=== PATIENT | male | born 1955 | race Caucasian/White ===

== ENCOUNTER → 2019-07-08 06:54 | Outpatient (CLI) | payer MEDICARE, SELFPAY ==
[2019-06-20 11:28] VITALS: BMI 35.6
--- NOTE | 2019-07-08 06:57 | ECHOCS_ITS ---
Reason For Study: LIGHTHEADEDNESS, CAD Procedure This was a 2D Doppler, Color Flow transthoracic echocardiogram. The study was technically difficult. Due to body habitus. Contrast injection was performed. Exam performed in department. Left Ventricle Normal LV size. Concentric left ventricular hypertrophy. The estimated ejection fraction is 60 %. There is evidence of diastolic dysfunction. No regional wall motion abnormalities noted. Right Ventricle Normal RV size. Normal systolic function. Atria The left atrium is mildly enlarged. Normal right atrium. No doppler evidence for ASD. Mitral Valve There is no mitral valve stenosis. No mitral valve insufficiency. Tricuspid Valve There is no tricuspid stenosis. Unable to estimate RV systolic pressure due to insufficient tricuspid regurgitant envelope. No tricuspid valve insufficiency. Aortic Valve Trisinus/trileaflet aortic valve. aortic sclerosis. Mild aortic stenosis. No aortic valve insufficiency. Pulmonic Valve There is no pulmonic valvular stenosis. No pulmonic valve insufficiency. Great Vessels Normal aortic root. Pericardium/Pleural No pericardial effusion. Medication Diluted definity 4.0ml given slow IV push to enhance endocardial definition. MMode/2D Measurements & Calculations LVIDd: 5.9 cm IVSd: 1.2 cm LVOT diam: 2.2 cm LVIDs: 3.9 cm LVPWd: 1.1 cm RVDd: 3.3 cm FS: 33.3 % LVOT area: 3.6 cm2 Ao root diam: 3.0 cm LAV(MOD-bp): 47.3 ml LA A4 area: 17.8 cm2 LAV(MOD-bp) Indexed: 22.7 ml/m2 LAV(MOD-sp2): 47.4 ml LAV(MOD-sp4): 47.4 ml LA dimension(2D): 4.3 cm RA A4 area: 14.1 cm2 Time Measurements MV dec time: 0.21 sec Doppler Measurements & Calculations MV E max russell: 102.2 cm/sec Lat Peak E' Russell: 7.6 cm/sec Med Peak E' Russell: 6.3 cm/sec MV A max russell: 87.8 cm/sec E/E' lat: 13.5 E/E' med: 16.2 MV E/A: 1.2 Ao V2 max: 201.8 cm/sec LV V1 max: 114.1 cm/sec SV(LVOT): 92.8 ml Ao max P.3 mmHg LV V1 max P.2 mmHg Ao V2 mean: 146.6 cm/sec LV V1 mean P.8 mmHg Ao mean P.2 mmHg LV V1 mean: 81.1 cm/sec Ao V2 VTI: 44.3 cm LV V1 VTI: 25.5 cm CHANNING(I,D): 2.1 cm2 CHANNING(V,D): 2.1 cm2 PA V2 max: 90.2 cm/sec TR max russell: 201.3 cm/sec TR max P.2 mmHg Interpretation Summary The study was technically difficult. Diluted definity 4.0ml given slow IV push to enhance endocardial definition. The estimated ejection fraction is 60 %. There is evidence of diastolic dysfunction. aortic sclerosis The study was technically difficult. Ordering Physician: Stacy Shirley Referring Physician: Michelet Alcala Performed By: Anastacia Mendoza RDCS, RVT
== END ==
PROVIDERS: Family Provider Internal Medicine; PCP Internal Medicine; Referring Provider Specialist; Visit Provider Specialist
DX: I25.10 Atherosclerotic heart disease of native coronary artery without angina pectoris (principal); R42 Dizziness and giddiness; G47.33 Obstructive sleep apnea (adult) (pediatric); Z99.89 Dependence on other enabling machines and devices
CPT/HCPCS: 78452; 93017; 93306; A9500; Q9957; A4216; C8929; J2785

== ENCOUNTER 2025-10-05 09:13 | Inpatient (IN) | payer MEDICARE, SELFPAY ==
[2025-10-05] VITALS (32 sets, daily range): BP systolic 126–186; BP diastolic 56–107; PULSE 59–139; RESP 18–39; TEMP 36.7–37.3; O2SAT 88–96; BMI 30.2
--- NOTE | 2025-10-05 09:34 | EKG12_ITS ---
Test Reason : SOB Blood Pressure : */* mmHG Vent. Rate : 136 BPM Atrial Rate : * BPM P-R Int : * ms QRS Dur : 96 ms QT Int : 296 ms P-R-T Axes : * 59 252 degrees QTcB Int : 445 ms Atrial fibrillation with rapid ventricular response Septal infarct , age undetermined Marked ST abnormality, possible inferolateral subendocardial injury Abnormal ECG Confirmed by KOKO MARTINEZ, MILAN ([id number]), story editor TROY CALLE ([id number]) on 10/09/2025 8:28:42 AM Referred By: Confirmed By: MILAN SUTHERLAND MD
--- NOTE | 2025-10-05 09:50 | ED.VIS.DYS ---
HPI History of Present Illness Chief Complaint: Shortness of Breath Narrative Narrative: Chief complaint and HPI: 69-year-old male with past medical history of COPD, QUYEN on CPAP and oxygen at night, HTN, HLD, CAD with history of PCI presents for evaluation of shortness of breath and right-sided chest pain. Patient states he has had chronic shortness of breath for years. States is progressively worsened over the past week. Has been using home aerosols. Patient states he developed redness sided chest pain. States that he has noticed his oxygen has been periodically dropping specifically with ambulation. He does not wear oxygen during the day. He denies any fever, chills, abdominal pain, nausea, vomiting, URI symptoms. Review of systems: See HPI Medications: As listed on the chart Allergies: As listed on the chart PFSH: Per chart Vital signs: As listed on the chart. Reviewed. Physical exam: Gen: A&O x3, NAD Head: Normocephalic, atraumatic Eyes: No sclera icterus, conjunctiva clear ENT: Moist mucous membranes Neck: Trachea midline CV: RRR, no murmurs, +1 pitting bilateral peripheral edema Resp: Lungs diminished in the bilateral bases, tight, expiratory wheezing, dyspneic with speaking, tachypnea GI: Abd soft, non-distended, non-tender, no r/r/g Musc: Full ROM, no deformity Skin: Warm, dry Neuro: Alert, oriented, grossly intact, sensation intact Psych: Cooperative, appropriate mood and affect [facility] Medical History (Updated 08/27/22 @ 09:27 by Gelacio Pereyra [employer]ANT SUPERVISOR, PLANT SUPERVISOR-C) QUYEN on CPAP Edema Migraine Morbid obesity Hypertensive retinopathy of both eyes Glaucoma Type 2 diabetes mellitus without complication Atherosclerosis of coronary artery of [place] heart without angina pectoris RLS (restless legs syndrome) COPD (chronic obstructive pulmonary disease) Essential hypertension Hyperlipidemia Open wound of right thigh Non-healing open wound of right groin Former smoker Hidradenitis Home Medications Medication Instructions Recorded Last Taken Type aspirin 81 mg chewable tablet 81 mg PO QHS 12/29/13 10/04/25 History budesonide-formoterol HFA 160 1 puff inhalation BID 12/29/13 06/17/16 07:45 History mcg-4.5 mcg/actuation aerosol inhaler metoprolol tartrate 25 mg tablet 25 mg PO BID 12/29/13 06/17/16 07:45 History atorvastatin 40 mg tablet 40 mg PO QHS 06/10/16 10/04/25 History bupropion HCl 150 mg tablet,12 hr 150 mg PO BID 06/10/16 10/04/25 History sustained-release lisinopril 40 mg tablet 40 mg PO DAILY 05/30/19 Unknown History tiotropium bromide 18 mcg capsule 1 cap inhalation DAILY 05/30/19 Unknown History with inhalation device amlodipine 5 mg tablet (Norvasc) 5 mg PO DAILY 10/05/25 10/04/25 History dulaglutide 4.5 mg/0.5 mL 4.5 mg subcut ARAUZ 10/05/25 10/01/25 History subcutaneous pen injector (Trulicity) furosemide 20 mg tablet 20 mg PO DAILY swelling 10/05/25 Unknown History insulin glargine 100 unit/mL (3 40 unit subcut DAILY 10/05/25 10/04/25 History mL) subcutaneous pen (Basaglar KwikPen U-100 Insulin) ipratropium 0.5 mg-albuterol 3 mg 3 ml inhalation BID sob 10/05/25 10/04/25 History (2.5 mg base)/3 mL nebulization soln metformin 500 mg tablet,extended 1,000 mg PO BID 10/05/25 Unknown History release 24 hr pregabalin 100 mg capsule (Lyrica) 100 mg PO TID 10/05/25 Unknown History Allergy/AdvReac Type Severity Reaction Status Date / Time No Known Allergies Allergy Verified 10/05/25 09:17 Family History Mother Heart disease Cancer Father Heart disease Grandfather Heart disease Surgical History History of removal of cyst Presence of stent in coronary artery Social History (Updated 09/14/19 @ 11:[address] Stacy Shirley MD) how long ago did patient quit smokin years ago alcohol intake: current alcohol intake frequency: a few times a month substance use type: does not use caffeine: Yes Type: coffee Number of servings: 3 and tea EXAM Physical Exam Const Vital Signs: 10/05/25 09:14 10/05/25 09:17 10/05/25 09:17 Temperature 98.1 F 99.1 F Temperature Source Oral Oral Pulse Rate 83 79 Respiratory Rate 20 H 36 H Respiratory Effort Respiratory Depth Respiratory Pattern Blood Pressure 185/80 H 186/80 H Blood Pressure Mean 115 115 Pulse Ox 88 96 91 Oxygen Delivery Method Room Air Room Air Room Air Oxygen Flow Rate (L/min) 10/05/25 09:29 10/05/25 09:34 10/05/25 09:45 Temperature Temperature Source Pulse Rate Respiratory Rate Respiratory Effort Short of Breath Respiratory Depth Deep Respiratory Pattern Tachypnea Blood Pressure Blood Pressure Mean Pulse Ox 96 Oxygen Delivery Method Nasal Cannula Nasal Cannula Nasal Cannula Oxygen Flow Rate (L/min) 2 2 2 10/05/25 09:45 10/05/25 10:14 10/05/25 10:17 Temperature 98.2 F Temperature Source Oral Pulse Rate 139 H 91 94 Respiratory Rate 30 H 32 H 28 H Respiratory Effort Respiratory Depth Respiratory Pattern Blood Pressure 163/90 H 163/90 H Blood Pressure Mean 114 114 Pulse Ox 92 91 Oxygen Delivery Method Nasal Cannula Nasal Cannula Oxygen Flow Rate (L/min) 1 1 10/05/25 10:32 10/05/25 10:42 10/05/25 10:42 Temperature Temperature Source Pulse Rate 90 126 H Respiratory Rate 34 H 36 H Respiratory Effort Respiratory Depth Respiratory Pattern Blood Pressure 163/90 H Blood Pressure Mean 112 Pulse Ox 89 91 Oxygen Delivery Method Nasal Cannula Oxygen Flow Rate (L/min) 1 10/05/25 11:00 10/05/25 11:04 10/05/25 11:15 Temperature 98.2 F Temperature Source Oral Pulse Rate 130 H 88 126 H Respiratory Rate 24 H 33 H 29 H Respiratory Effort Respiratory Depth Respiratory Pattern Blood Pressure 143/76 H 143/76 H Blood Pressure Mean 98 95 Pulse Ox 91 94 Oxygen Delivery Method Nasal Cannula Oxygen Flow Rate (L/min) 1 MDM MDM MDM Narrative Medical decision making narrative: 69-year-old male with past medical history of COPD, QUYEN on CPAP and oxygen at night, HTN, HLD, CAD with history of PCI presents for evaluation of shortness of breath and right-sided chest pain. Patient states he has had chronic shortness of breath for years. States is progressively worsened over the past week. Has been using home aerosols. Patient states he developed redness sided chest pain. States that he has noticed his oxygen has been periodically dropping specifically with ambulation. On presentation, patient is tachypneic and hypoxic on room air. Placed on 2 L nasal cannula. Differential diagnosis includes but is not limited to COPD exacerbation, pneumonia, CHF, PE, ACS. Solu-Medrol and DuoNebs ordered. Cardiac/respiratory workup ordered. Patient is intermittently in atrial fibrillation with RVR. He converts to a normal rate without intervention. However during breathing treatment patient remained in atrial fibrillation with RVR very therefore diltiazem ordered. On chart review, patient has no history of atrial fibrillation. I reviewed the cardiology note from 2021. Patient's last echocardiogram is from 2018 in which she had an EF of 60%. His last stress test was 2018 in which it was negative for ischemic changes. Prior to diltiazem and patient's heart rate now in the mid 90s. Will give 10 mg of 20mg. VBG with mild hypercapnia with normal pH. CBC without leukocytosis or anemia. Platelets unremarkable. Coagulation panel unremarkable. BMP unremarkable except for hyperglycemia. BNP unremarkable. Troponin unremarkable. On reevaluation, patient's heart rate in the 140s. 20 mg IV diltiazem ordered. Right before this was given patient's heart rate now in the 90s and appears normal sinus rhythm on the monitor therefore we will hold off on diltiazem and instead repeat EKG. Before EKG was being obtained, patient with back into A-fib with RVR. 20 mg of diltiazem ordered. CTA of the chest shows right hilar lymph node enlargement with postobstructive pneumonitis in the right upper lobe. A neoplastic process should be ruled out. Small right pleural effusion with atelectasis and infiltrate at the right lung base. No evidence of PE. Rocephin and azithromycin ordered for possible pneumonia. Patient will warrant admission for further workup and treatment. Patient was updated of all results and the plan. He confirmed understanding. Patient has an elevated [id number] score of 4. This places him at risk for stroke. Heparin versus Eliquis was discussed with the admitting team, Dr. Mccall. He would like Eliquis. This was ordered. Patient admitted. EKG: Interpreted by me/EM physician: EKG shows atrial fibrillation with RVR. Nonspecific ST changes. Heart rate 136. Impression: 1. New onset atrial fibrillation with RVR 2. Acute hypoxia requiring oxygen via nasal cannula 3. Possible pneumonia 4. Right hilar lymph node enlargement with postobstructive pneumonitis, possible neoplastic process 5. COPD exacerbation Lab Data Labs: Laboratory Results - last 24 hr 10/05/25 10/05/25 09:45 10:10 WBC 10.5 RBC 5.93 Hgb 16.3 Hct 50.2 MCV 84.7 MCH 27.5 MCHC 32.5 RDW Std Deviation 45.5 H RDW Coeff of David 15.0 H Plt Count 220 MPV 10.2 Immature Gran % (Auto) 0.500 Neut % (Auto) 78.7 H Lymph % (Auto) 11.3 L [place] % (Auto) 7.3 Eos % (Auto) 1.8 Baso % (Auto) 0.4 Absolute Neuts (auto) 8.2 H Absolute Lymphs (auto) 1.18 Nucleated RBC % 0 PT 14.0 INR 1.1 APTT 28.4 Sodium 139 Potassium 4.0 Chloride 103 Carbon Dioxide 26.8 Anion Gap 9 BUN 9 Creatinine 0.62 L Estim Creat Clear Calc 87.81 Est GFR (MDRD) Non-Af 103 BUN/Creatinine Ratio 14.3 Glucose 221 H Calcium 9.7 Troponin T High Sens 20 NT pro BNP II 59 ABG Data ABG results: ABG 10/05/25 10:19 Specimen Type MADDY Sample Site Not entered VBG pH 7.38 VBG pO2 28 VBG HCO3 31 H VBG Total CO2 33 VBG O2 Sat (Calc) 49 L VBG Base Excess 6 H POC Mix VBG pCO2 Pt Tmp 53.2 H O2 Delivery Device Not entered Radiography Diagnostic Testing: Clinical Impression(s) from Imaging Studies Chest CTA 10/05/25 10:45 IMPRESSION: Right hilar lymph node enlargement with postobstructive pneumonitis in the right upper lobe. A neoplastic process should be ruled out. Small right pleural effusion with atelectasis and infiltrate at the right lung base. No evidence of pulmonary embolism. Reading Location: [facility] Discharge Plan Triage Chief Complaint: Shortness of Breath ED Provider: Germán Paredes Dx/Rx/DC Orders Prescriptions: No Action lisinopril 40 mg tablet 40 mg PO DAILY tiotropium bromide 18 mcg capsule, w/inhalation device 1 cap INHALATION DAILY aspirin 81 MG tablet,chewable 81 mg PO QHS Patient Comments: heart health metoprolol tartrate 25 MG tablet 25 mg PO BID Patient Comments: heartrate budesonide-formoterol 1 INHALER inhaler 1 puff inhalation BID Patient Comments: breathing atorvastatin 40 MG tablet 40 mg PO QHS Patient Comments: cholesterol bupropion HCl 150 MG tablet sustained-release 12 hr 150 mg PO BID Patient Comments: depression furosemide 20 mg tablet 20 mg PO DAILY metformin 500 mg tablet extended release 24 hr 1,000 mg PO BID amlodipine [Norvasc] 5 mg tablet 5 mg PO DAILY pregabalin [Lyrica] 100 mg capsule 100 mg PO TID Trulicity 4.5 mg/0.5 mL pen injector 4.5 mg subcut ARAUZ insulin glargine [Basaglar KwikPen U-100 Insulin] 100 unit/mL (3 mL) insulin pen 40 unit subcut DAILY ipratropium-albuterol 0.5 mg-3 mg(2.5 mg base)/3 mL solution for nebulization 3 ml inhalation BID Primary Care Provider: Michelet Alcala Referrals: Michelet Alcala MD [Primary Care Provider, Internal Medicine] Print Language: Swiss
[2025-10-05] MEDS: 0.9% Normal Saline (500mL Bag) 500 ML 1000 ML IV (09:51)
[2025-10-05 09:52] LABS: Hematocrit 50.2 % (40-54); Hemoglobin 16.3 g/dL (13.0-16.5); Immature Granulocytes Count 0.050 X10^3/uL (0.0-0.0); Mean Corp Hgb Conc 32.5 g/dL (32-36); Mean Corpuscular Volume 84.7 fL (80-94); Mean Platelet Vol. 10.2 fl (6.2-12.0); NRBC Flagged by Analyzer 0 % (0-5); Platelet Count 220 K/mm3 (150-450); RBC Distribution Width CV 15.0 % (11.6-14.6); RBC Distribution Width SD 45.5 fl (35.1-43.9); Red Blood Count 5.93 M/mm3 (4.6-6.2); White Blood Count 10.5 K/mm3 (4.4-11.0)
[2025-10-05 10:15] LABS: Anion Gap 9 (5-15); BUN 9 mg/dL (4-19); BUN/Creat Ratio 14.3 RATIO (10-20); Calcium,Total 9.7 mg/dL (7.6-11.0); Carbon Dioxide 26.8 mmol/L (21.0-32.0); Chloride 103 mmol/L (98-108); Estimated Creatinine Clearance 87.81 ml/min (50-250); Glucose 221 mg/dL (70-99); Potassium 4.0 mmol/L (3.3-5.1); Pro- Brain NATRIURETIC PEPTIDE 59 pg/mL (<=900); Troponin T High Sensitivity 20 ng/L (<=22)
[2025-10-05 10:22] LABS: SITE Not entered; VBG BASE EXCESS 6 mmol/L (-1.0-3.5); VBG PO2 28 mmHg (25-40); VBG SO2 49 % (50-70); VBG TCO2 33 mmol/L (23-33)
[2025-10-05 10:36] LABS: Prothrombin Time (Protime)PT. 14.0 SECONDS (11.7-14.9)
[2025-10-05 10:37] LABS: Partial Thromboplast Time 28.4 Seconds (24.1-36.2)
--- NOTE | 2025-10-05 10:45 | CT_ITS ---
PROCEDURE: CTA CHEST W/WO CONTRAST 10/05/2025 REASON FOR EXAM: PE Right-sided chest pain. Dyspnea. COPD. TECHNIQUE: Procedure Code: [id number] Modality: CT Procedure: CTA CHEST W/WO CONTRAST Multiplanar Sagittal and Coronal images were obtained. 3D post processing was performed CONTRAST: Isovue 370 VOLUME: 100 mL One or more dose reduction techniques were used (e.g., Automated exposure control, adjustment of the mA and/or kV according to patient size, use of iterative reconstruction technique). RADIATION DOSE SUMMARY: CTDlvol: 11.1 mGy DLP: 532.66 mGycm COMPARISON: None FINDINGS: Hardware: None Mild heterogeneous appearance of the right lobe of the thyroid. Elevation of the right hemidiaphragm. Lymph nodes: Small lymph nodes are seen in the mediastinum. Right hilar lymph node enlargement with evidence of narrowing of the right intermediate stem bronchus with postobstructive pneumonitis and/or atelectasis in the right upper lobe. Small right pleural effusion with the right basilar infiltrate. The left lung is clear. Heart: The heart is nonenlarged. Coronary artery calcification. Thoracic Aorta: No thoracic aortic aneurysm or dissection. Pulmonary Vessels: No evidence of pulmonary embolism. Pleura: Small left pleural effusion. Upper Abdomen: Findings suggestive of a 1.4 cm cyst in the mid lateral aspect of the left kidney. Bones: Degenerative changes of the thoracic spine. Increased kyphosis. CT/CTA Chest W/WO Contrast IMPRESSION: Right hilar lymph node enlargement with postobstructive pneumonitis in the righ t upper lobe. A neoplastic process should be ruled out. Small right pleural effusion with atelectasis and infiltrate at the right lung base. No evidence of pulmonary embolism. Reading Location: [place] [id number]
--- NOTE | 2025-10-05 11:15 | EKG12_ITS ---
Test Reason : REPEAT Blood Pressure : */* mmHG Vent. Rate : 88 BPM Atrial Rate : 88 BPM P-R Int : 178 ms QRS Dur : 112 ms QT Int : 376 ms P-R-T Axes : 58 44 -15 degrees QTcB Int : 454 ms Normal sinus rhythm T wave abnormality, consider inferior ischemia Abnormal ECG Confirmed by KOKO MARTINEZ, MILAN ([id number]), medical transcription editor TROY CALLE ([id number]) on 10/09/2025 8:28:49 AM Referred By: Confirmed By: MILAN SUTHERLAND MD
[2025-10-05] MEDS: APIXABAN 5 MG TABLET PO ×2 (12:01→21:13)
[2025-10-05] MEDS: Azithromycin 500 MG in 0.9% Normal Saline (250mL Bag) 250 ML 250 MG IV (12:25)
--- NOTE | 2025-10-05 12:27 | HP.PCM.HOS_ITS ---
[facility] - [facility] General Date of Service: 10/05/25 Chief Complaint: Increased shortness of breath for 1 week, right-sided chest pain yesterday HPI Narrative INDY SHANKS, is a 69 M who presents with history of COPD and smoking came to ED with right-sided chest pain that started yesterday night. Chest pain is constant 6-7/10 intensity exacerbated with cough. He has been using nebulizer twice daily for 1 month but is still shortness of breath got worse for last 1 week. He has mild baseline cough but no exacerbation or sputum production. Denies fever. He smokes a pack per day. In ED, he was found afebrile RVR and was given a total of 30 mL of IV Cardizem bolus and 1 time converted to sinus rhythm but back again A-fib RVR. He is started on Cardizem drip. He follows Dr. Shirley and Gelacio grover, last seen August 2022 for history of CAD with stent, hypertension and dyslipidemia. In ED patient is still tachycardic A-fib RVR. He does CPAP at night. Follows Dr. Tiffanie Clements, restaurant service manager [facility] but last seen about a year ago. [facility] Medical History (Updated 10/05/25 @ 12:[address] Manas Mccall MD) QUYEN on CPAP Edema Migraine Morbid obesity Hypertensive retinopathy of both eyes Glaucoma Type 2 diabetes mellitus without complication Atherosclerosis of coronary artery of [place] heart without angina pectoris RLS (restless legs syndrome) COPD (chronic obstructive pulmonary disease) Essential hypertension Hyperlipidemia Open wound of right thigh Non-healing open wound of right groin Former smoker Hidradenitis Home Medications Medication Instructions Recorded Last Taken Type aspirin 81 mg chewable tablet 81 mg PO QHS 12/29/13 History budesonide-formoterol HFA 160 1 puff inhalation BID 06/17/16 07:45 History mcg-4.5 mcg/actuation aerosol inhaler metoprolol tartrate 25 mg tablet 25 mg PO BID 12/29/13 06/17/16 07:45 History atorvastatin 40 mg tablet 40 mg PO QHS 06/10/16 History bupropion HCl 150 mg tablet,12 hr 150 mg PO BID 10/04/25 History sustained-release lisinopril 40 mg tablet 40 mg PO DAILY 05/30/19 Unkn own History tiotropium bromide 18 mcg capsule 1 cap inhalation LICHA LY 05/30/19 Unknown History with inhalation device amlodipine 5 mg tablet (Norvasc) 5 mg PO DAILY 5 10/04/25 History dulaglutide 4.5 mg/0.5 mL 4.5 mg subcut ARAUZ 10/05/25 History subcutaneous pen injector (Trulicity) furosemide 20 mg tablet 20 mg PO DAILY swelling 09/23 02/14 Unknown History insulin glargine 100 unit/mL (3 40 unit subcut DAILY 1 12/05/24 10/04/25 History mL) subcutaneous pen (Basaglar KwikPen U-100 Insulin) ipratropium 0.5 mg-albuterol 3 mg 3 ml inhalation BID sob 10/05/25 10/04/25 History (2.5 mg base)/3 mL nebulization soln metformin 500 mg tablet,extended 1,000 mg PO BID 10/05 Unknown History release 24 hr pregabalin 100 mg capsule (Lyrica) 100 mg PO TID 10/05 Unknown History Allergy/AdvReac Type Severity Reaction Status Date / Time No Known Allergies Allergy Verified 10/05/25 09:17 Family History Mother Heart disease Cancer Father Heart disease Grandfather Heart disease Surgical History History of removal of cyst Presence of stent in coronary artery Social History how long ago did patient quit smokin years ago alcohol intake: current alcohol intake frequency: a few times a month substance use type: does not use caffeine: Yes Type: coffee Number of servings: 3 and tea ROS ROS Narrative Constitutional: Reports chronic fatigue and weakness. No fever. Loss of weight from 255 pound to 187 pound in 1 year, loss appetite but also on Trulicity HEENT: Reports systems reviewed and no addt'l complaints, except as documented Respiratory/Chest: As described in HPI. CVS: As described in HPI. Right-sided chest pain Gastrointestinal: Denies coffee ground emesis, hematemesis or vomiting. No abdominal pain Genitourinary: Denies burning urination or new urinary tract symptoms Musculoskeletal: Denies acute joint pain or limited range of motion. No acute injury Neurologic: Denies seizure-like symptoms. skin: No ulcer. No rash Endocrinology: Reports systems reviewed and no addt'l complaints, except as documented Hematologic/Lymphatic: Reports systems reviewed and no addt'l complaints, except as documented Rest 14 ROS are negative except as mentioned in HPI Vital Signs Vital Signs Vital Signs: 10/05/25 09:14 10/05/25 09:17 10/05/25 09:17 Temperature 98.1 F 99.1 F Temperature Source Oral Oral Pulse Rate 83 79 Respiratory Rate 20 H 36 H Respiratory Effort Respiratory Depth Respiratory Pattern Blood Pressure 185/80 H 186/80 H Blood Pressure Mean 115 115 Pulse Ox 88 96 91 Oxygen Delivery Method Room Air Room Air Room Air Oxygen Flow Rate (L/min) 10/05/25 09:29 10/05/25 09:34 10/05/25 09:45 Temperature Temperature Source Pulse Rate Respiratory Rate Respiratory Effort Short of Breath Respiratory Depth Deep Respiratory Pattern Tachypnea Blood Pressure Blood Pressure Mean Pulse Ox 96 Oxygen Delivery Method Nasal Cannula Nasal Cannula Nasal Cannula Oxygen Flow Rate (L/min) 2 2 2 10/05/25 09:45 10/05/25 10:14 10/05/25 10:17 Temperature 98.2 F Temperature Source Oral Pulse Rate 139 H 91 94 Respiratory Rate 30 H 32 H 28 H Respiratory Effort Respiratory Depth Respiratory Pattern Blood Pressure 163/90 H 163/90 H Blood Pressure Mean 114 114 Pulse Ox 92 91 Oxygen Delivery Method Nasal Cannula Nasal Cannula Oxygen Flow Rate (L/min) 1 1 10/05/25 10:32 10/05/25 10:42 10/05/25 10:42 Temperature Temperature Source Pulse Rate 90 126 H Respiratory Rate 34 H 36 H Respiratory Effort Respiratory Depth Respiratory Pattern Blood Pressure 163/90 H Blood Pressure Mean 112 Pulse Ox 89 91 Oxygen Delivery Method Nasal Cannula Oxygen Flow Rate (L/min) 1 10/05/25 11:00 10/05/25 11:04 10/05/25 11:15 Temperature 98.2 F Temperature Source Oral Pulse Rate 130 H 88 126 H Respiratory Rate 24 H 33 H 29 H Respiratory Effort Respiratory Depth Respiratory Pattern Blood Pressure 143/76 H 143/76 H Blood Pressure Mean 98 95 Pulse Ox 91 94 Oxygen Delivery Method Nasal Cannula Oxygen Flow Rate (L/min) 1 10/05/25 11:30 10/05/25 12:00 10/05/25 12:00 Temperature 98.2 F Temperature Source Oral Pulse Rate 115 H 108 H 94 Respiratory Rate 39 H 30 H 26 H Respiratory Effort Respiratory Depth Respiratory Pattern Blood Pressure 129/83 H 137/107 H 137/107 H Blood Pressure Mean 96 117 117 Pulse Ox 91 90 90 Oxygen Delivery Method Nasal Cannula Oxygen Flow Rate (L/min) 1 Weight Weight: 187 lb 4 oz Body Mass Index (BMI) 30.2 Physical Exam Narrative General: Alert, Oriented x3, Cooperative. 187 pound, BMI 30.2 kg/m² HEENT: Atraumatic, PERRLA, EOMI, Normocephalic. Oral: Oral mucosa dry no Gingival or Mucosal Lesions/ Ulcerations Neck: Supple, No JVD, Negative Carotid Bruits Chest wall/Lungs: Air entry severely diminished in all lung chavira. Bilateral coarse crepitations/rhonchi. Cardiovascular: A-fib RVR, no M/G/R Abdomen: Bowel Sounds Present, Soft, Non Tender, Non-Distended : No dysuria. No renal angle tenderness. No suprapubic tenderness. Extremities: No edema, Capillary Refill Less than 3 Seconds Skin: No rashes, No breakdown Musculoskeletal: No Tenderness to Palpation of Joints or Extremities Neurological: Cranial nerves II-XII grossly intact, DTR 2+/4. No acute focal neurological deficit. Psych/Mental Status: Flat affect. Results Lab / Micro Data 10/05/25 09:45 10/05/25 09:45 Labs: Laboratory Results - last 24 hr 10/05/25 09:45: WBC 10.5, RBC 5.93, Hgb 16.3, Hct 50.2, MCV 84.7, MCH 27.5, MCHC 32.5, RDW Std Deviation 45.5 H, RDW Coeff of David 15.0 H, Plt Count 220, MPV 10.2, Immature Gran % (Auto) 0.500, Neut % (Auto) 78.7 H, Lymph % (Auto) 11.3 L, [place] % (Auto) 7.3, Eos % (Auto) 1.8, Baso % (Auto) 0.4, Absolute Neuts (auto) 8.2 H, Absolute Lymphs (auto) 1.18, Nucleated RBC % 0, Sodium 139, Potassium 4.0, Chloride 103, Carbon Dioxide 26.8, Anion Gap 9, BUN 9, Creatinine 0.62 L, Estim Creat Clear Calc 87.81, Est GFR (MDRD) Non-Af 103, BUN/Creatinine Ratio 14.3, Glucose 221 H, Calcium 9.7, Troponin T High Sens 20, NT pro BNP II 59 10/05/25 10:10: PT 14.0, INR 1.1, APTT 28.4 Micro: Microbiology 10/05/25 09:50 Mucosa - Nose SARS-CoV-2, Influenza & RSV (PCR) - Final ABG Data ABG results: ABG 10/05/25 10:19 Specimen Type MADDY Sample Site Not entered VBG pH 7.38 VBG pO2 28 VBG HCO3 31 H VBG Total CO2 33 VBG O2 Sat (Calc) 49 L VBG Base Excess 6 H POC Mix VBG pCO2 Pt Tmp 53.2 H O2 Delivery Device Not entered Imaging Radiology Impression Chest CTA 10/05/25 10:45 IMPRESSION: Right hilar lymph node enlargement with postobstructive pneumonitis in the right upper lobe. A neoplastic process should be ruled out. Small right pleural effusion with atelectasis and infiltrate at the right lung base. No evidence of pulmonary embolism. [facility] Assessment & Plan Assessment/Plan (1) Paroxysmal atrial fibrillation with RVR: (2) COPD exacerbation: (3) Hilar lymphadenopathy: PLAN: Plan This is 69-year-old gentleman being admitted for A-fib RVR, COPD exacerbation 1. A-fib RVR most likely precipitated by COPD exacerbation: Patient is being admitted in PCU. Twelve-lead EKG, first 1 A-fib RVR 136 beats minute, second one NSR 88 bpm but the patient back A-fib RVR on the satellite project site monitor. Started on Cardizem drip in ED 10 mg/h after Cardizem bolus. Metoprolol 25 mg twice daily ordered. On Eliquis 5 mg twice daily as CHADVASC score is 4. 2D echo ordered. Last echo June 2019 EF 60%, evidence of diastolic dysfunction aortic sclerosis with technically difficult study. 2. COPD exacerbation with chronic worsening COPD probably secondary to noncompliance: Home medication shows he is on Symbicort and tiotropium but not using it or probably ran out as he is not seeing restaurant service manager for more than a year. Patient is being managed on scheduled bronchodilator, IV Solu-Medrol, Mucinex, incentive spirometry and Pep. 3. Right hilar lymph node enlargement with suspicion of neoplastic process: CTA chest was done in ED to rule out PE and PE ruled out. It shows right hilar lymph node enlargement with evidence of narrowing of right intermediate mainstem bronchus with postobstructive pneumonitis/atelectasis in the right upper lobe. Recommended to rule out neoplastic process. Senior It Auditor consulted. Most likely, he will need EBUS as an outpatient when A-fib RVR and COPD exacerbation is controlled. 4. Probability of postoperative pneumonitis in right upper lobe: Empirically started on IV antibiotic Unasyn after 1 dose of Rocephin and Zithromax in ED. Pneumonia workup ordered. 5. Right-sided chest pain most likely due to COPD exacerbation: 2 serial troponins are negative. ACS ruled out. proBNP normal 59. 6. CAD status post stent: Patient on baby aspirin, atorvastatin, lisinopril and metoprolol; all continued. 7. DM type II: Accu-Chek before meals and at bedtime with Humalog sliding scale coverage and hypoglycemia protocol. Patient on glargine insulin and Trulicity at home. A1c ordered for tomorrow a.m. 8. Hypertension and dyslipidemia: On the medications as mentioned above. Lipid profile tomorrow a.m. 9. DVT prophylaxis, moderate to high risk: On Eliquis 5 mg twice daily Living will/advanced directive/end of life care: Patient does not have living will or advanced directive. He does not have DailyD power of assistant district attorney for health. His is next of kin and present in the ED. After discussion of benefits/risks procedures involved with full code, DNR CC arrest and DNR CC, the patient opted for full code. Patient does want artificial life support including intubation, tube feed, ventilator and/chest compression, central venous catheter, vasopressor and DC shock if needed Total time spent in [id number] encounter in discussion of advanced directive 17 minutes. Microbiology Past 72 Hours 10/05/25 09:50 Mucosa - Nose SARS-CoV-2, Influenza & RSV (PCR) - Final Laboratory Results 10/05/25 09:45: WBC 10.5, RBC 5.93, Hgb 16.3, Hct 50.2, MCV 84.7, MCH 27.5, MCHC 32.5, RDW Std Deviation 45.5 H, RDW Coeff of David 15.0 H, Plt Count 220, MPV 10.2, Immature Gran % (Auto) 0.500, Neut % (Auto) 78.7 H, Lymph % (Auto) 11.3 L, [place] % (Auto) 7.3, Eos % (Auto) 1.8, Baso % (Auto) 0.4, Absolute Neuts (auto) 8.2 H, Absolute Lymphs (auto) 1.18, Nucleated RBC % 0, Sodium 139, Potassium 4.0, Chloride 103, Carbon Dioxide 26.8, Anion Gap 9, BUN 9, Creatinine 0.62 L, Estim Creat Clear Calc 87.81, Est GFR (MDRD) Non-Af 103, BUN/Creatinine Ratio 14.3, Glucose 221 H, Calcium 9.7, Phosphorus Pending, Magnesium Pending, Troponin T High Sens 20, NT pro BNP II 59 10/05/25 10:10: PT 14.0, INR 1.1, APTT 28.4 10/05/25 10:19: Specimen Type MADDY, Sample Site Not entered, VBG pH 7.38, VBG pO2 28, VBG HCO3 31 H, VBG Total CO2 33, VBG O2 Sat (Calc) 49 L, VBG Base Excess 6 H , POC Mix VBG pCO2 Pt Tmp 53.2 H, O2 Delivery Device Not entered 10/05/25 11:45: Troponin T Hi Sens 2 Hr 19 Clinical Impression(s) from Imaging Studies Chest CTA 10/05/25 10:45 IMPRESSION: Right hilar lymph node enlargement with postobstructive pneumonitis in the right upper lobe. A neoplastic process should be ruled out. Small right pleural effusion with atelectasis and infiltrate at the right lung base. No evidence of pulmonary embolism. Charges/Coding Visit Charges Inpatient E&M: 74457 Init Hosp L3 Procedures Hospitalists Procedures: 97098 Advncd Care Plan 30 Min
--- NOTE | 2025-10-05 12:27 | RAD_ITS ---
PROCEDURE: CHEST PA AND LATERAL 10/05/2025 REASON FOR EXAM: [id number] TECHNIQUE: Procedure Code: RADCXR Modality: DX Procedure: CHEST PA AND LATERAL COMPARISON: Prior CT scan done earlier in the day. FINDINGS: Hardware: EKG electrodes are seen. Heart: The heart size is normal. Mediastinum: The mediastinal contour is unremarkable. Lungs: Volume loss and atelectasis of the right middle lobe with possible right infrahilar mass. Bones: Degenerative changes are identified within the thoracic spine. RAD/Chest PA and Lateral IMPRESSION: Atelectasis and volume loss in the right middle lobe with findings suggestive o f right hilar mass. Reading Location: [place] [id number]
[2025-10-05 12:36] LABS: Troponin T High Sens 2 HR 19 ng/L (<=22)
[2025-10-05] MEDS: Diltiazem 125 MG in Dextrose 5%-Water (100mL Bag) 100 ML IV (12:38)
[2025-10-05 12:52] LABS: Magnesium 2.3 mg/dL (1.5-2.2)
--- NOTE | 2025-10-05 13:05 | EX.PCM.CONCC ---
Assessment & Plan Assessment/Plan (1) Hilar lymphadenopathy: (2) COPD exacerbation: (3) Paroxysmal atrial fibrillation with RVR: PLAN: Plan RECOMMENDATIONS: 1. Supplemental oxygen, if needed, to maintain saturations at or above 90%. 2. Empiric antimicrobials x 7 days. 3. Given atrial fibrillation, recommend Atrovent aerosols. 4. Medical management of atrial fibrillation per hospitalist. 5. The patient should follow-up with his primary pasteurizing supervisor, Dr. Tiffanie Clements at [facility], after discharge for repeat chest imaging and consideration for bronchoscopy/EBUS. IMPRESSIONS: 1. Shortness of breath and chest discomfort The patient presented to the hospital with dyspnea and chest discomfort in the setting of a known history of coronary artery disease status post PCI along with COPD. He is followed on an outpatient basis by Dr. Tiffanie Clements of pulmonary medicine at [facility]. The patient was noted to have right hilar adenopathy with compression of the bronchus intermedius leading to postobstructive atelectasis. The patient has an extensive tobacco abuse history. Therefore, once the patient's atrial fibrillation has been addressed, I would recommend that he follow-up with his primary pasteurizing supervisor after discharge for coordination of follow-up chest imaging and consideration for bronchoscopy/EBUS. There is no indication for inpatient workup of his pulmonary condition. Will defer medical management of his atrial fibrillation to hospitalist. 2. History of obstructive sleep apnea Recommend nocturnal CPAP therapy + 3 L/min, per home regimen. 3. History of chronic tobacco dependency/coronary artery disease status post PCI/diabetes mellitus/hypertension Complicates care, management, recovery and prognosis. Smoking cessation is strongly advised. This note was generated with [employer] dictation software. It may contain incorrect words, spelling, and punctuation that were not noted in checking the note before signing. HPI Consult Data Date of Consult: 10/05/25 HPI Narrative Reason for Consultation: Abnormal CT scan HPI Narrative: The patient is a 69-year-old male, with a history as outlined below, who presented to the emergency department with complaints of shortness of breath and chest discomfort. The patient has an extensive tobacco abuse history of approximately 25 pack years, but indicated that he quit smoking today. The patient has an established diagnosis of COPD and is currently followed on an outpatient basis by Dr. Tiffanie Clements of pulmonary medicine at [facility]. He does not utilize supplemental oxygen during the day, but has been diagnosed with obstructive sleep apnea and utilizes nocturnal CPAP +3 L. The patient does report that he utilizes nebulizers at his baseline. He is not clear if any recent chest imaging has been completed through [facility]. The patient has an established relationship with outpatient cardiology due to a history of coronary artery disease status post PCI. On presentation to the emergency department, the patient was noted to be afebrile and hypertensive with a presenting blood pressure of 185/80 mmHg. Laboratory evaluation revealed a normal white blood cell count. Hemoglobin and platelet count were stable. Coagulation profile was unremarkable. Chemistry profile was unremarkable. Troponin was negative. BNP was normal. CTA chest showed no evidence for pulmonary embolism, but did reveal right hilar adenopathy with narrowing of the bronchus intermedius and postobstructive atelectasis. There was a small right-sided pleural effusion with associated atelectasis. In the emergency department, the patient was noted to be in atrial fibrillation with RVR. He was subsequently placed on a Cardizem. Bronchodilators and antimicrobials were ordered. [facility] Medical History (Updated 10/05/25 @ 12:[address] Manas Mccall MD) QUYEN on CPAP Edema Migraine Morbid obesity Hypertensive retinopathy of both eyes Glaucoma Type 2 diabetes mellitus without complication Atherosclerosis of coronary artery of [place] heart without angina pectoris RLS (restless legs syndrome) COPD (chronic obstructive pulmonary disease) Essential hypertension Hyperlipidemia Open wound of right thigh Non-healing open wound of right groin Former smoker Hidradenitis Home Medications Medication Instructions Recorded Last Taken Type aspirin 81 mg chewable tablet 81 mg PO QHS 12/29/13 10/04/25 History budesonide-formoterol HFA 160 1 puff inhalation BID 12/29/13 06/17/16 07:45 History mcg-4.5 mcg/actuation aerosol inhaler metoprolol tartrate 25 mg tablet 25 mg PO BID 12/29/13 06/17/16 07:45 History atorvastatin 40 mg tablet 40 mg PO QHS 06/10/16 10/04/25 History bupropion HCl 150 mg tablet,12 hr 150 mg PO BID 06/10/16 10/04/25 History sustained-release lisinopril 40 mg tablet 40 mg PO DAILY 05/30/19 Unknown History tiotropium bromide 18 mcg capsule 1 cap inhalation DAILY 05/30/19 Unknown History with inhalation device amlodipine 5 mg tablet (Norvasc) 5 mg PO DAILY 10/05/25 10/04/25 History dulaglutide 4.5 mg/0.5 mL 4.5 mg subcut ARAUZ 10/05/25 10/01/25 History subcutaneous pen injector (Trulicity) furosemide 20 mg tablet 20 mg PO DAILY swelling 10/05/25 Unknown History insulin glargine 100 unit/mL (3 40 unit subcut DAILY 10/05/25 10/04/25 History mL) subcutaneous pen (Basaglar KwikPen U-100 Insulin) ipratropium 0.5 mg-albuterol 3 mg 3 ml inhalation BID sob 10/05/25 10/04/25 History (2.5 mg base)/3 mL nebulization soln metformin 500 mg tablet,extended 1,000 mg PO BID 10/05/25 Unknown History release 24 hr pregabalin 100 mg capsule (Lyrica) 100 mg PO TID 10/05/25 Unknown History Allergy/AdvReac Type Severity Reaction Status Date / Time No Known Allergies Allergy Verified 10/05/25 09:17 Family History Mother Heart disease Cancer Father Heart disease Grandfather Heart disease Surgical History History of removal of cyst Presence of stent in coronary artery Social History how long ago did patient quit smokin years ago alcohol intake: current alcohol intake frequency: a few times a month substance use type: does not use caffeine: Yes Type: coffee Number of servings: 3 and tea ROS ROS Narrative 10 systems were reviewed with pertinent positives as noted in the HPI above. Physical Exam Const alert, oriented x3 and no apparent distress HEENT normocephalic, head/scalp atraumatic and moist oral mucous membranes Eyes PERRL, EOMs intact bilaterally and conjunctivae normal Neck supple General: trachea midline Chest inspection of chest normal Resp normal respiratory effort Auscultation: diminished lung sounds; Negative for rales, rhonchi or wheezes Cardio S1 normal heart sound and S2 normal heart sound Rate: tachycardic Rhythm: abnormal rhythm GI normal to inspection, nondistended, normoactive bowel sounds Extremity no clubbing, cyanosis or edema Skin no rashes or lesions noted Neuro CN's II-XII intact bilaterally, moves all extremities and no focal motor deficits Psych cooperative and affect normal Lab / Micro Data 10/05/25 09:45 10/05/25 09:45 Labs: Laboratory Results - last 24 hr 10/05/25 09:45: WBC 10.5, RBC 5.93, Hgb 16.3, Hct 50.2, MCV 84.7, MCH 27.5, MCHC 32.5, RDW Std Deviation 45.5 H, RDW Coeff of David 15.0 H, Plt Count 220, MPV 10.2, Immature Gran % (Auto) 0.500, Neut % (Auto) 78.7 H, Lymph % (Auto) 11.3 L, [place] % (Auto) 7.3, Eos % (Auto) 1.8, Baso % (Auto) 0.4, Absolute Neuts (auto) 8.2 H, Absolute Lymphs (auto) 1.18, Nucleated RBC % 0, Sodium 139, Potassium 4.0, Chloride 103, Carbon Dioxide 26.8, Anion Gap 9, BUN 9, Creatinine 0.62 L, Estim Creat Clear Calc 87.81, Est GFR (MDRD) Non-Af 103, BUN/Creatinine Ratio 14.3, Glucose 221 H, Calcium 9.7, Phosphorus 2.9, Magnesium 2.3 H, Troponin T High Sens 20, NT pro BNP II 59 10/05/25 10:10: PT 14.0, INR 1.1, APTT 28.4 10/05/25 11:45: Troponin T Hi Sens 2 Hr 19 Micro: Microbiology 10/05/25 09:50 Mucosa - Nose SARS-CoV-2, Influenza & RSV (PCR) - Final ABG Data ABG results: ABG 10/05/25 10:19 Specimen Type MADDY Sample Site Not entered VBG pH 7.38 VBG pO2 28 VBG HCO3 31 H VBG Total CO2 33 VBG O2 Sat (Calc) 49 L VBG Base Excess 6 H POC Mix VBG pCO2 Pt Tmp 53.2 H O2 Delivery Device Not entered Imaging Radiology Impression Chest CTA 10/05/25 10:45 IMPRESSION: Right hilar lymph node enlargement with postobstructive pneumonitis in the right upper lobe. A neoplastic process should be ruled out. Small right pleural effusion with atelectasis and infiltrate at the right lung base. No evidence of pulmonary embolism. Reading Location: [facility] Charges/Coding Visit Charges Inpatient E&M: 18673 Init Hosp L3
--- NOTE | 2025-10-05 14:34 | ECHOCS_ITS ---
Reason For Study Reason For Study: TA Procedure This was a 2D Doppler, Color Flow transthoracic echocardiogram. The study was technically difficult. Contrast injection was performed. Exam performed portable in patient room. Left Ventricle Normal LV size. The estimated ejection fraction is 70 %. No evidence for diastolic dysfunction. No regional wall motion abnormalities noted. Right Ventricle Normal RV size. Normal systolic function. Atria The left atrium is mildly enlarged. Normal right atrium. No doppler evidence for ASD. Mitral Valve There is mild mitral annular calcification. There is no mitral valve stenosis. No mitral valve insufficiency. Tricuspid Valve There is no tricuspid stenosis. No tricuspid valve insufficiency. Unable to estimate RV systolic pressure due to inadequate jet, pulmonary artery pressure probably normal. Aortic Valve Mild diffuse aortic valve thickening. Mild aortic stenosis. No aortic valve insufficiency. Pulmonic Valve There is no pulmonic valvular stenosis. No pulmonic valve insufficiency. Great Vessels Normal sized aortic root. Pericardium/Pleural No pericardial effusion. Medication Diluted definity 2ml given slow IV push to enhance endocardial definition. MMode/2D Measurements & Calculations LVIDd: 5.3 cm IVSd: 0.85 cm LVOT diam: 2.3 cm LVIDs: 3.9 cm LVPWd: 1.0 cm RVDd: 4.2 cm FS: 25.7 % LVOT area: 4.2 cm2 Ao root diam: 3.4 cm LAV(MOD-bp): 44.9 ml LVAd ap2: 18.7 cm2 LAV(MOD-bp) Indexed: 23.1 ml/m2 LVLd ap2: 6.2 cm LAV(MOD-sp2): 36.8 ml EDV(MOD-sp2): 45.2 ml LAV(MOD-sp4): 54.7 ml EDV(sp2-el): 47.8 ml LVAs ap2: 10.9 cm2 LVLs ap2: 5.0 cm ESV(MOD-sp2): 19.6 ml ESV(sp2-el): 20.1 ml EF(MOD-sp2): 56.6 % SV(MOD-sp2): 25.6 ml LA A4 area: 18.8 cm2 LA dimension(2D): 4.7 cm SI(MOD-sp2): 13.1 ml/m2 RA A4 area: 15.2 cm2 TAPSE: 2.3 cm Time Measurements MV dec time: 0.26 sec Doppler Measurements & Calculations MV E max russell: 118.6 cm/sec Lat Peak E' Russell: 12.1 cm/sec Med Peak E' Russell: 8.3 cm/sec MV A max russell: 113.9 cm/sec E/E' lat: 9.8 E/E' med: 14.4 MV E/A: 1.0 MV dec slope: 450.7 cm/sec2 Ao V2 max: 230.4 cm/sec LV V1 max: 126.1 cm/sec Ao max P.2 mmHg LV V1 max P.4 mmHg Ao V2 mean: 159.7 cm/sec LV V1 mean P.1 mmHg Ao mean P.4 mmHg LV V1 mean: 97.0 cm/sec Ao V2 VTI: 50.6 cm LV V1 VTI: 31.3 cm AV (velocity ratio): 0.62 CHANNING(I,D): 2.6 cm2 CHANNING(V,D): 2.3 cm2 SV(LVOT): 131.8 ml PA V2 max: 93.7 cm/sec ECHO/Echo Complete W/ Contrast Interpretation Summary The estimated ejection fraction is 70 %. No evidence for diastolic dysfunction. The left atrium is mildly enlarged. Mild aortic stenosis. Ordering Physician: Manas Mccall Referring Physician: Michelet Alcala Performed By: Missael Padron RDCS
[2025-10-05] MEDS: 0.9% Normal Saline (1000mL) 1,000 ML 75 ML IV (14:51)
--- NOTE | 2025-10-05 16:05 | ED.RN ---
cardizem drip started at 5mg/hr per original order. Kept at 5mg/hr upon admission to the floor.
[2025-10-05] MEDS: Ampicillin/Sulbactam 3 GM in 0.9% Normal Saline (100mL MB+) 100 ML IV ×2 (18:15→23:26)
[2025-10-05 20:47] LABS: Pro- Brain NATRIURETIC PEPTIDE 65 pg/mL (<=900)
[2025-10-05] MEDS: buPROPion (SR) 150 MG Tablet.SA PO (21:14)
[2025-10-05] MEDS: Senna/Docusate Sodium 1 Tablet 2 TABLET PO (21:15)
[2025-10-05] MEDS: 0.9% Saline Lock 10 ML Syringe IV (21:31)
[2025-10-06] VITALS (14 sets, daily range): BP systolic 105–140; BP diastolic 52–71; PULSE 50–72; RESP 14–29; TEMP 36.6–36.7; O2SAT 89–93
--- NOTE | 2025-10-06 00:27 | PCM.HOSP.N ---
Hospitalist Note Pt converted to sinus rhythm several hours ago, diltiazem gtt @5mg/hr, pt having received 25mg metoprolol earlier; HR in the 60s. I reviewed case with , I ordered metoprolol 25mg PO x1 now, stopped diltiazem drip, and changed level of care to cardiac tele (PCU).
[2025-10-06 05:39] LABS: Hematocrit 46.0 % (40-54); Hemoglobin 15.2 g/dL (13.0-16.5); Immature Granulocytes Count 0.070 X10^3/uL (0.0-0.0); Mean Corp Hgb Conc 33.0 g/dL (32-36); Mean Corpuscular Volume 83.3 fL (80-94); Mean Platelet Vol. 10.4 fl (6.2-12.0); NRBC Flagged by Analyzer 0 % (0-5); Platelet Count 228 K/mm3 (150-450); RBC Distribution Width CV 14.9 % (11.6-14.6); RBC Distribution Width SD 45.1 fl (35.1-43.9); Red Blood Count 5.52 M/mm3 (4.6-6.2); White Blood Count 13.9 K/mm3 (4.4-11.0)
[2025-10-06] MEDS: Ampicillin/Sulbactam 3 GM in 0.9% Normal Saline (100mL MB+) 100 ML IV ×4 (06:03→23:09)
[2025-10-06 06:30] LABS: Cholesterol 202 mg/dL (<=200); Low Density Lipoprotein Calc. 139 mg/dL; Triglycerides 122 mg/dL; Very Low Density Lipoprotein 24 mg/dL (5-40); cholesterol:hdl ratio screen 4.99
[2025-10-06 06:33] LABS: Anion Gap 12 (5-15); BUN 21 mg/dL (4-19); BUN/Creat Ratio 26.0 RATIO (10-20); Calcium,Total 9.4 mg/dL (7.6-11.0); Carbon Dioxide 21.0 mmol/L (21.0-32.0); Chloride 104 mmol/L (98-108); Estimated Creatinine Clearance 86.72 ml/min (50-250); Glucose 392 mg/dL (70-99); Potassium 4.3 mmol/L (3.3-5.1)
[2025-10-06] MEDS: 0.9% Saline Lock 10 ML Syringe IV ×2 (06:36→22:28)
[2025-10-06] MEDS: APIXABAN 5 MG TABLET PO ×2 (09:21→21:56)
[2025-10-06] MEDS: Insulin Glargine-YFGN 100 UNIT/ML Pen 30 UNIT SC (09:21)
[2025-10-06] MEDS: buPROPion (SR) 150 MG Tablet.SA PO ×2 (09:22→21:58)
[2025-10-06] MEDS: Senna/Docusate Sodium 1 Tablet 2 TABLET PO ×2 (09:22→21:57)
[2025-10-06] MEDS: Ipratropium 0.5 MG/2.5 ML SOLUTION INHALATION ×3 (11:21→20:37)
--- NOTE | 2025-10-06 11:33 | CASEMGMT ---
Social Work SW spoke with the patient and completed a SDOH. Patient lives at home with his , daughter and granddaughter. Patient reported his roof is leaking and there is mold around the door. Patient reported his furnace is working on and off. He reported he has notified his landlord. These concerns started about a month. He reported he does not want to report his landlord yet and wants to give her a chance to fix these problems. He reported he has lived in this home for 15 years. He reported his is considering having them move into a senior facility. Patient reported he still drives and has a car. SW gave the patient resources of [employer], [employer], [employer], food pantries and fair housing. SW also made a referral to [facility]. Patient wants to apply for Medicaid. REMIGIO Diaz
--- NOTE | 2025-10-06 12:11 | CHAPLAIN ---
Type of Pastoral Visit _x__ Initial Visit ___ Follow-up Visit ___ On-call Visit ___ General Patient Visit ___ Spiritual Assessment ___ Family Conference ___ Bereavement ___ Rapid Response ___ Code Blue ___ Other (describe below) Pastoral Care Referral From _x__ Patient ___ Family ___ Nurse ___ Physician ___ Acid Purifier ___ Hydro Generation Supervisor ___ Other (describe below) Sacrament/Intervention _x__ Active listening ___ Anointing ___ Orthodoxy ___ Bereavement ___ Communion _x__ Lilia exploration ___ _x__ Life review _x__ Prayer ___ Reconciliation ___ Sacrament of Sick ___ Supportive presence ___ Wedding ___ Other (describe below) Pastoral Comments patient is pleasant and welcoming; pt is talkative and expresses his lilia and his mosque involvement; pt has had some significant changes in life and since being admitted has decided he must quit smoking; pt gives some life review and information about family; pt is welcoming of someone to talk with and for prayer to be given
--- NOTE | 2025-10-06 13:33 | PCM.PN.HOSP ---
Reason for Visit Chief Complaint: Increased shortness of breath for 1 week, right-sided chest pain yesterday Objective Data Objective Data Vital Signs: Vital Signs Temp Pulse Resp BP Pulse Ox O2 Del Method O2 Flow Rate 98.0 F 70 14 140/68 H 92 Nasal Cannula 3 10/06/25 09:15 10/06/25 11:21 10/06/25 11:21 10/06/25 09:22 10/06/25 11:21 10/06/25 11:21 10/06/25 12:53 Oxygen Flow Rate (L/min) 3 Oxygen Delivery Method Nasal Cannula Weight: 187 lb 6.287 oz Body Mass Index (BMI) 30.2 Intake & Output: Intake and Output for Last 24 Hours 10/04/25 10/05/25 10/06/25 23:59 23:59 23:59 Intake Total 1551.83 / 2196.83 2188.75 / 2188.75 Balance 1551.83 / 2196.83 2188.75 / 2188.75 Lab / Micro Data 10/06/25 05:29 10/06/25 05:29 Labs: Laboratory Results - last 24 hr 10/05/25 11:45: NT pro BNP II 65 10/05/25 16:50: POC Glucose 428 H 10/05/25 21:36: POC Glucose 395 H 10/06/25 05:29: WBC 13.9 H, RBC 5.52, Hgb 15.2, Hct 46.0, MCV 83.3, MCH 27.5, MCHC 33.0, RDW Std Deviation 45.1 H, RDW Coeff of David 14.9 H, Plt Count 228, MPV 10.4, Immature Gran % (Auto) 0.500, Neut % (Auto) 92.0 H, Lymph % (Auto) 5.5 L, [place] % (Auto) 1.9, Eos % (Auto) 0.0, Baso % (Auto) 0.1, Absolute Neuts (auto) 12.8 H, Absolute Lymphs (auto) 0.77 L, Nucleated RBC % 0, Sodium 137, Potassium 4.3, Chloride 104, Carbon Dioxide 21.0, Anion Gap 12, BUN 21 H, Creatinine 0.81, Estim Creat Clear Calc 86.72, Est GFR (MDRD) Non-Af 95, BUN/Creatinine Ratio 26.0 H, Glucose 392 H, Hemoglobin A1c 7.4 H, Calcium 9.4, Triglycerides 122, Cholesterol 202 H, LDL Cholesterol, Calc 139, VLDL Cholesterol 24, HDL Cholesterol 41, Cholesterol/HDL Ratio 4.99, TSH 0.252 L 10/06/25 09:06: POC Glucose 336 H 10/06/25 12:51: POC Glucose 299 H Micro: Microbiology 10/05/25 18:55 Nasal Secretion MRSA (PCR) - Final 10/05/25 19:00 Urine, Clean Catch Legionella Antigen - Final 10/05/25 19:00 Urine, Clean Catch Streptococcus pneumoniae Antigen (M - Final 10/05/25 12:00 Mucosa - Nose Respiratory Panel (PCR) - Final 10/05/25 09:50 Mucosa - Nose SARS-CoV-2, Influenza & RSV (PCR) - Final Radiography Diagnostic Testing: Radiology Impression Chest X-Ray 10/05/25 12:27 IMPRESSION: Atelectasis and volume loss in the right middle lobe with findings suggestive of right hilar mass. Reading Location: [facility]1 Echocardiogram 10/05/25 14:34 Interpretation Summary The estimated ejection fraction is 70 %. No evidence for diastolic dysfunction. The left atrium is mildly enlarged. Mild aortic stenosis. Ordering Physician: Manas Mccall Referring Physician: Michelet Alcala Performed By: Missael Padron RDCS Physical Exam Narrative General: Alert, Oriented x3, Cooperative. 187 pound, BMI 30.2 kg/m² HEENT: Atraumatic, PERRLA, EOMI, Normocephalic. Oral: Oral mucosa dry no Gingival or Mucosal Lesions/ Ulcerations Neck: Supple, No JVD, Negative Carotid Bruits Chest wall/Lungs: Air entry severely diminished in all lung chavira. Bilateral coarse crepitations/rhonchi. Cardiovascular: A-fib RVR, no M/G/R Abdomen: Bowel Sounds Present, Soft, Non Tender, Non-Distended : No dysuria. No renal angle tenderness. No suprapubic tenderness. Extremities: No edema, Capillary Refill Less than 3 Seconds Skin: No rashes, No breakdown Musculoskeletal: No Tenderness to Palpation of Joints or Extremities Neurological: Cranial nerves II-XII grossly intact, DTR 2+/4. No acute focal neurological deficit. Psych/Mental Status: Flat affect. Assessment & Plan Assessment/Plan (1) Paroxysmal atrial fibrillation with RVR: (2) COPD exacerbation: (3) Hilar lymphadenopathy: PLAN: Plan This is 69-year-old gentleman being admitted for A-fib RVR, COPD exacerbation 1. A-fib RVR most likely precipitated by COPD exacerbation: Patient is being admitted in PCU. Twelve-lead EKG, first 1 A-fib RVR 136 beats minute, second one NSR 88 bpm but the patient back A-fib RVR on the chief wharfinger. Started on Cardizem drip in ED 10 mg/h after Cardizem bolus. Metoprolol 25 mg twice daily ordered. On Eliquis 5 mg twice daily as CHADVASC score is 4. 2D echo ordered. Last echo June 2019 EF 60%, evidence of diastolic dysfunction aortic sclerosis with technically difficult study. 10/06: Patient converted to sinus rhythm overnight. Currently heart rate is around 70. Continue Eliquis. 2D echo shows mild aortic stenosis, EF 70%, LA mildly enlarged. 2. COPD exacerbation with chronic worsening COPD probably secondary to noncompliance: Home medication shows he is on Symbicort and tiotropium but not using it or probably ran out as he is not seeing director of medical services for more than a year. Patient is being managed on scheduled bronchodilator, IV Solu-Medrol, Mucinex, incentive spirometry and Pep. 10/06: Patient is still short of breath but has significant improvement since yesterday. Continue above antibiotic. 3. Right hilar lymph node enlargement with suspicion of neoplastic process: CTA chest was done in ED to rule out PE and PE ruled out. It shows right hilar lymph node enlargement with evidence of narrowing of right intermediate mainstem bronchus with postobstructive pneumonitis/atelectasis in the right upper lobe. Recommended to rule out neoplastic process. Stockroom Worker consulted. Most likely, he will need EBUS as an outpatient when A-fib RVR and COPD exacerbation is controlled. 10/06: Patient was evaluated by director of medical services, recommended to continue antimicrobial for 7 days, follow-up primary director of medical services Dr. Tiffanie Clements at [facility] after discharge for repeat chest imaging and consideration of bronchoscopy/EBUS. 4. Probability of postobstructive pneumonitis in right upper lobe/atelectasis and volume loss as mentioned above: Empirically started on IV antibiotic Unasyn after 1 dose of Rocephin and Zithromax in ED. Pneumonia workup ordered. 10/06: Urinary antigens, respiratory panel and MRSA nasal screen are negative. Triple PCR for SARS-CoV-2, flu and RSV are negative. Continue empiric antibiotic for total of 7-day 5. Right-sided chest pain most likely due to COPD exacerbation: 2 serial troponins are negative. ACS ruled out. proBNP normal 59. 10/06: Right-sided chest pain is resolved. 6. CAD status post stent: Patient on baby aspirin, atorvastatin, lisinopril and metoprolol; all continued. 7. DM type II: Accu-Chek before meals and at bedtime with Humalog sliding scale coverage and hypoglycemia protocol. Patient on glargine insulin and Trulicity at home. A1c ordered for tomorrow a.m. 8. Hypertension and dyslipidemia: On the medications as mentioned above. Lipid profile tomorrow a.m. 9. DVT prophylaxis, moderate to high risk: On Eliquis 5 mg twice daily Living will/advanced directive/end of life care: Patient does not have living will or advanced directive. He does not have DailyD power of workers compensation defense attorney for health. His is next of kin and present in the ED. After discussion of benefits/risks procedures involved with full code, DNR CC arrest and DNR CC, the patient opted for full code. Patient does want artificial life support including intubation, tube feed, ventilator and/chest compression, central venous catheter, vasopressor and DC shock if needed Microbiology Past 72 Hours 10/05/25 18:55 Nasal Secretion MRSA (PCR) - Final 10/05/25 19:00 Urine, Clean Catch Legionella Antigen - Final 10/05/25 19:00 Urine, Clean Catch Streptococcus pneumoniae Antigen (M - Final 10/05/25 12:00 Mucosa - Nose Respiratory Panel (PCR) - Final 10/05/25 09:50 Mucosa - Nose SARS-CoV-2, Influenza & RSV (PCR) - Final Laboratory Results 10/05/25 11:45: NT pro BNP II 65 10/05/25 16:50: POC Glucose 428 H 10/05/25 21:36: POC Glucose 395 H 10/06/25 05:29: WBC 13.9 H, RBC 5.52, Hgb 15.2, Hct 46.0, MCV 83.3, MCH 27.5, MCHC 33.0, RDW Std Deviation 45.1 H, RDW Coeff of David 14.9 H, Plt Count 228, MPV 10.4, Immature Gran % (Auto) 0.500, Neut % (Auto) 92.0 H, Lymph % (Auto) 5.5 L, [place] % (Auto) 1.9, Eos % (Auto) 0.0, Baso % (Auto) 0.1, Absolute Neuts (auto) 12.8 H, Absolute Lymphs (auto) 0.77 L, Nucleated RBC % 0, Sodium 137, Potassium 4.3, Chloride 104, Carbon Dioxide 21.0, Anion Gap 12, BUN 21 H, Creatinine 0.81, Estim Creat Clear Calc 86.72, Est GFR (MDRD) Non-Af 95, BUN/Creatinine Ratio 26.0 H, Glucose 392 H, Hemoglobin A1c 7.4 H, Calcium 9.4, Triglycerides 122, Cholesterol 202 H, LDL Cholesterol, Calc 139, VLDL Cholesterol 24, HDL Cholesterol 41, Cholesterol/HDL Ratio 4.99, TSH 0.252 L 10/06/25 09:06: POC Glucose 336 H 10/06/25 12:51: POC Glucose 299 H Clinical Impression(s) from Imaging Studies Chest CTA 10/05/25 10:45 IMPRESSION: Right hilar lymph node enlargement with postobstructive pneumonitis in the right upper lobe. A neoplastic process should be ruled out. Small right pleural effusion with atelectasis and infiltrate at the right lung base. No evidence of pulmonary embolism. [facility] Chest X-Ray 10/05/25 12:27 IMPRESSION: Atelectasis and volume loss in the right middle lobe with findings suggestive of right hilar mass. Echocardiogram 10/05/25 14:34 Interpretation Summary The estimated ejection fraction is 70 %. No evidence for diastolic dysfunction. The left atrium is mildly enlarged. Mild aortic stenosis. Ordering Physician: Manas Mccall Referring Physician: Michelet Alcala Performed By: Missael Padron RDCS Charges/Coding Visit Charges Inpatient E&M: 44269 Subs Hosp L2
[2025-10-07] MEDS: 0.9% Saline Lock 10 ML Syringe IV ×2 (00:09→06:00)
[2025-10-07 03:20] VITALS: BP 153/87; PULSE 73; RESP 16; TEMP 36.8; O2SAT 97
[2025-10-07] MEDS: Ampicillin/Sulbactam 3 GM in 0.9% Normal Saline (100mL MB+) 100 ML IV ×2 (05:59→11:40)
[2025-10-07 06:07] LABS: Hematocrit 44.6 % (40-54); Hemoglobin 14.4 g/dL (13.0-16.5); Immature Granulocytes Count 0.090 X10^3/uL (0.0-0.0); Mean Corp Hgb Conc 32.3 g/dL (32-36); Mean Corpuscular Volume 84.8 fL (80-94); Mean Platelet Vol. 11.2 fl (6.2-12.0); NRBC Flagged by Analyzer 0 % (0-5); Platelet Count 243 K/mm3 (150-450); RBC Distribution Width CV 15.2 % (11.6-14.6); RBC Distribution Width SD 46.9 fl (35.1-43.9); Red Blood Count 5.26 M/mm3 (4.6-6.2); White Blood Count 19.2 K/mm3 (4.4-11.0)
[2025-10-07 07:12] LABS: Anion Gap 9 (5-15); BUN 23 mg/dL (4-19); BUN/Creat Ratio 34.0 RATIO (10-20); Calcium,Total 9.3 mg/dL (7.6-11.0); Carbon Dioxide 24.3 mmol/L (21.0-32.0); Chloride 106 mmol/L (98-108); Estimated Creatinine Clearance 87.84 ml/min (50-250); Glucose 339 mg/dL (70-99); Potassium 4.6 mmol/L (3.3-5.1)
[2025-10-07] MEDS: Ipratropium 0.5 MG/2.5 ML SOLUTION INHALATION ×2 (07:15→10:52)
[2025-10-07 07:17] VITALS: PULSE 70; RESP 16; O2SAT 90
--- NOTE | 2025-10-07 07:18 | CPS ---
Pt was on 2L NC saturating 89%, turned up to 3L now saturating 90%
[2025-10-07 08:07] VITALS: PULSE 86
[2025-10-07] MEDS: Senna/Docusate Sodium 1 Tablet 2 TABLET PO (08:08)
[2025-10-07] MEDS: buPROPion (SR) 150 MG Tablet.SA PO (08:08)
[2025-10-07] MEDS: APIXABAN 5 MG TABLET PO (08:09)
[2025-10-07] MEDS: Insulin Glargine-YFGN 100 UNIT/ML Pen 30 UNIT SC (08:11)
--- NOTE | 2025-10-07 09:16 | DCINST_ITS ---
Discharge Instructions DC O2, CPAP, BIPAP needs Home O2 Discharge instructions: Yes Type of respiratory needs?: Oxygen Oxygen frequency: Continuous Continuous oxygen liters per minute: 3 Dressing / Incision Discharge Activity: Return to Normal Activity Weight Bearing Status: Weight bearing as tolerated Dressing / Incision Call your doctor if you observe: Fever of 101 or Higher, Coldness, Increased Adele n, Numbness or Tingling, Change in Color, Inability to urinate, Inability to have a bowel movement, Shortness of breath, Dizziness, Fainting spells, Swelling in the ankles, Chest pain, Prolonged hiccupping, Increased palpitations (irregular heartbeat) and Calf discomfort Follow Up Care When: IN 2 WEEKS Test Results: Test results from this visit will be discussed in further detail at your follow- up appointment, if applicable. Discharge Plan Admission Admit Date/Time: 10/05/25 11:43 Attending Provider: Manas Mccall Primary Care Provider: Michelet Alcala Discharge Orders/Prescriptions Prescriptions: New metoprolol tartrate 50 mg Tablet 50 mg PO BID 30 Days Qty: 60 2RF guaifenesin [Mucus Relief ER] 1,200 mg Tablet Extended Release 12hr 1,200 mg PO BID 7 Days Qty: 14 0RF Eliquis 5 mg Tablet 5 mg PO BID 30 Days Qty: 60 2RF amoxicillin-pot clavulanate 875-125 mg tablet 1 tab PO BID 5 Days Qty: 10 0RF prednisone 20 mg tablet 40 mg PO DAILY 5 Days Qty: 10 0RF Continued lisinopril 40 mg tablet 40 mg PO DAILY tiotropium bromide 18 mcg capsule, w/inhalation device 1 cap INHALATION DAILY aspirin 81 MG tablet,chewable 81 mg PO QHS Patient Comments: heart health budesonide-formoterol 1 INHALER inhaler 1 puff inhalation BID Patient Comments: breathing atorvastatin 40 MG tablet 40 mg PO QHS Patient Comments: cholesterol bupropion HCl 150 MG tablet sustained-release 12 hr 150 mg PO BID Patient Comments: depression furosemide 20 mg tablet 20 mg PO DAILY amlodipine [Norvasc] 5 mg tablet 5 mg PO DAILY pregabalin [Lyrica] 100 mg capsule 100 mg PO TID Trulicity 4.5 mg/0.5 mL pen injector 4.5 mg subcut ARAUZ insulin glargine [Basaglar KwikPen U-100 Insulin] 100 unit/mL (3 mL) insulin pen 40 unit subcut DAILY ipratropium-albuterol 0.5 mg-3 mg(2.5 mg base)/3 mL solution for nebulization 3 ml inhalation BID OXYGEN - Supplemental ([facility] INFORMATIONAL USE ONLY) Patient Comments: per CM note: wears 3 lpm at night DME: [facility] CPAP - Continuous Positive Airway Pressure([facility] INFORMATIONAL USE ONLY) Patient Comments: per CM notes: Cpap through [facility], does not know settings to CPAP Held metformin 500 mg tablet extended release 24 hr 1,000 mg PO BID Hold Instructions: Hold for 2 days Discontinued metoprolol tartrate 25 MG tablet 25 mg PO BID Patient Comments: heartrate Referrals / Follow Up: Tiffanie Clements MD [Non-Staff, Medical] Referral Note: Follow-up in 2 weeks to evaluate for bronchoscopy/EBUS for right hilar lymphadenopathy compressing right intermedius bronchus. Michelet Alcala MD [Primary Care Provider, Internal Medicine] - Within 1 Week Disposition Disposition (needs filled in before D/C Order can be placed): Home, Self Care
[2025-10-07 10:49] VITALS: O2SAT 85; O2SAT 93; O2SAT 94
[2025-10-07 11:09] VITALS: PULSE 77; RESP 19
--- NOTE | 2025-10-07 12:09 | DS.PCM_ITS ---
Providers Date of Admission: 10/05/25 Date of Discharge: 10/07/25 Primary Care Physician: Dr. Michelet Alcala MD Consultations 10/05/25 12:23 Consult: Claims Customer Service Representative / Pulmonary Medicine Routine Consulting Provider: Intensivists/Pulmonary Med Reason for Consult: right hilar LN, malignant?, Rt bronchus narrowing EMERGENT Consult: No MD Notified: Yes Date Notified: 10/05/25 Time Notified: 12:23 Method of Notification: Text Reason For Visit: AFIB RVR Diagnosis Discharge Diagnosis (1) Paroxysmal atrial fibrillation with RVR: Status: Acute Code(s): I48.0 - Paroxysmal atrial fibrillation (2) COPD exacerbation: Status: Chronic Code(s): J44.1 - Chronic obstructive pulmonary disease with (acute) exacerbation (3) Hilar lymphadenopathy: Status: Acute Code(s): R59.0 - Localized enlarged lymph nodes Plan This is 69-year-old gentleman being admitted for A-fib RVR, COPD exacerbation 1. A-fib RVR most likely precipitated by COPD exacerbation: Patient is being admitted in PCU. Twelve-lead EKG, first 1 A-fib RVR 136 beats minute, second one NSR 88 bpm but the patient back A-fib RVR on the campus monitor. Started on Cardizem drip in ED 10 mg/h after Cardizem bolus. Metoprolol 25 mg twice daily ordered. On Eliquis 5 mg twice daily as CHADVASC score is 4. 2D echo ordered. Last echo June 2019 EF 60%, evidence of diastolic dysfunction aortic sclerosis with technically difficult study. 10/06: Patient converted to sinus rhythm overnight. Currently heart rate is around 70. Continue Eliquis. 2D echo shows mild aortic stenosis, EF 70%, LA mildly enlarged. 10/07: Patient heart rate is controlled. Discharged on metoprolol 50 mg twice daily and Eliquis 5 mg twice daily. Advised follow-up in cardiology office within a month. 2. COPD exacerbation with chronic worsening COPD probably secondary to noncompliance: Home medication shows he is on Symbicort and tiotropium but not using it or probably ran out as he is not seeing chest pain coordinator for more than a year. Patient is being managed on scheduled bronchodilator, IV Solu-Medrol, Mucinex, incentive spirometry and Pep. 10/06: Patient is still short of breath but has significant improvement since yesterday. Continue above antibiotic. 10/07: Patient discharged on Augmentin for 5 more days, Mucinex and burst prednisone therapy, 40 mg daily for 5 days; prescription sent to patient's pharmacy = 3. Right hilar lymph node enlargement with suspicion of neoplastic process: CTA chest was done in ED to rule out PE and PE ruled out. It shows right hilar lymph node enlargement with evidence of narrowing of right intermediate mainstem bronchus with postobstructive pneumonitis/atelectasis in the right upper lobe. Recommended to rule out neoplastic process. Line Fisher consulted. Most likely, he will need EBUS as an outpatient when A-fib RVR and COPD exacerbation is controlled. 10/06: Patient was evaluated by chest pain coordinator, recommended to continue antimicrobial for 7 days, follow-up primary chest pain coordinator Dr. Tiffanie Clements at [facility] after discharge for repeat chest imaging and consideration of bronchoscopy/EBUS. 10/07 advised to follow-up with s Tiffanie Clements 4. Probability of postobstructive pneumonitis in right upper lobe/atelectasis and volume loss as mentioned above: Empirically started on IV antibiotic Unasyn after 1 dose of Rocephin and Zithromax in ED. Pneumonia workup ordered. 10/06: Urinary antigens, respiratory panel and MRSA nasal screen are negative. Triple PCR for SARS-CoV-2, flu and RSV are negative. Continue empiric antibiotic for total of 7-day 5. Right-sided chest pain most likely due to COPD exacerbation: 2 serial troponins are negative. ACS ruled out. proBNP normal 59. 10/06: Right-sided chest pain is resolved. 6. CAD status post stent: Patient on baby aspirin, atorvastatin, lisinopril and metoprolol; all continued. 7. DM type II: Accu-Chek before meals and at bedtime with Humalog sliding scale coverage and hypoglycemia protocol. Patient on glargine insulin and Trulicity at home. A1c ordered for tomorrow a.m. 8. Hypertension and dyslipidemia: On the medications as mentioned above. Lipid profile tomorrow a.m. 9. DVT prophylaxis, moderate to high risk: On Eliquis 5 mg twice daily Living will/advanced directive/end of life care: Patient does not have living will or advanced directive. He does not have DailyD power of employment attorney for health. His is next of kin and present in the ED. After discussion of benefits/risks procedures involved with full code, DNR CC arrest and DNR CC, the patient opted for full code. Patient does want artificial life support including intubation, tube feed, ventilator and/chest compression, central venous catheter, vasopressor and DC shock if needed Discharge medication reconciliation done. Discharge follow-up instructions completed. Discharge process discussed with the patient and all questions were answered to patient's satisfaction. Follow with PCP in 1 to 2 weeks Total time spent, exact 35 minutes on discharge meds reconciliation, examination, coordination of care with nurses and ancillary staff, review of imaging and blood test and discussion with the patient on follow-up instructions. Microbiology Past 72 Hours 10/05/25 18:55 Nasal Secretion MRSA (PCR) - Final 10/05/25 19:00 Urine, Clean Catch Legionella Antigen - Final 10/05/25 19:00 Urine, Clean Catch Streptococcus pneumoniae Antigen (M - Final 10/05/25 12:00 Mucosa - Nose Respiratory Panel (PCR) - Final 10/05/25 09:50 Mucosa - Nose SARS-CoV-2, Influenza & RSV (PCR) - Final Laboratory Results 10/05/25 11:45: NT pro BNP II 65 10/05/25 16:50: POC Glucose 428 H 10/05/25 21:36: POC Glucose 395 H 10/06/25 05:29: WBC 13.9 H, RBC 5.52, Hgb 15.2, Hct 46.0, MCV 83.3, MCH 27.5, MCHC 33.0, RDW Std Deviation 45.1 H, RDW Coeff of David 14.9 H, Plt Count 228, MPV 10.4, Immature Gran % (Auto) 0.500, Neut % (Auto) 92.0 H, Lymph % (Auto) 5.5 L, Platte % (Auto) 1.9, Eos % (Auto) 0.0, Baso % (Auto) 0.1, Absolute Neuts (auto) 12.8 H, Absolute Lymphs (auto) 0.77 L, Nucleated RBC % 0, Sodium 137, Potassium 4.3, Chloride 104, Carbon Dioxide 21.0, Anion Gap 12, BUN 21 H, Creatinine 0.81, Estim Creat Clear Calc 86.72, Est GFR (MDRD) Non-Af 95, BUN/Creatinine Ratio 26.0 H, Glucose 392 H, Hemoglobin A1c 7.4 H, Calcium 9.4, Triglycerides 122, C holesterol 202 H, LDL Cholesterol, Calc 139, VLDL Cholesterol 24, HDL Cholesterol 41, Cholesterol/HDL Ratio 4.99, TSH 0.252 L 10/06/25 09:06: POC Glucose 336 H 10/06/25 12:51: POC Glucose 299 H Clinical Impression(s) from Imaging Studies Chest CTA 10/05/25 10:45 IMPRESSION: Right hilar lymph node enlargement with postobstructive pneumonitis in the right upper lobe. A neoplastic process should be ruled out. Small right pleural effusion with atelectasis and infiltrate at the right lung base. No evidence of pulmonary embolism. Reading Location: [facility] Chest X-Ray 10/05/25 12:27 IMPRESSION: Atelectasis and volume loss in the right middle lobe with findings suggestive of right hilar mass. Echocardiogram 10/05/25 14:34 Interpretation Summary The estimated ejection fraction is 70 %. No evidence for diastolic dysfunction. The left atrium is mildly enlarged. Mild aortic stenosis. Ordering Physician: Manas Mccall Referring Physician: Michelet Alcala Performed By: Missael Padron, MAZIN Medications at Discharge Home Medications aspirin 81 mg chewable tablet 81 mg PO QHS 12/29/13 budesonide-formoterol HFA 160 mcg-4.5 mcg/actuation aerosol inhaler 1 puff inhalation BID 12/29/13 atorvastatin 40 mg tablet 40 mg PO QHS 06/10/16 bupropion HCl 150 mg tablet,12 hr sustained-release 150 mg PO BID 06/10/16 lisinopril 40 mg tablet 40 mg PO DAILY 05/30/19 tiotropium bromide 18 mcg capsule with inhalation device 1 cap inhalation DAILY 05/30/19 amlodipine 5 mg tablet (Norvasc) 5 mg PO DAILY 10/05/25 dulaglutide 4.5 mg/0.5 mL subcutaneous pen injector (Trulicity) 4.5 mg subcut ARAUZ 10/05/25 furosemide 20 mg tablet 20 mg PO DAILY swelling 10/05/25 insulin glargine 100 unit/mL (3 mL) subcutaneous pen (Basaglar KwikPen U-100 Insulin) 40 unit subcut DAILY 10/05/25 ipratropium 0.5 mg-albuterol 3 mg (2.5 mg base)/3 mL nebulization soln 3 ml inhalation BID sob 10/05/25 metformin 500 mg tablet,extended release 24 hr 1,000 mg PO BID 10/05/25 Held on 10/07/25. Instructions: Hold for 2 days pregabalin 100 mg capsule (Lyrica) 100 mg PO TID 10/05/25 CPAP - Continuous Positive Airway Pressure([facility] INFORMATIONAL USE ONLY) QUYEN 10/06/25 OXYGEN - Supplemental ([facility] INFORMATIONAL USE ONLY) hypoxia 10/06/25 amoxicillin 875 mg-potassium clavulanate 125 mg tablet 1 tab PO BID 5 days #10 tabs 10/07/25 apixaban 5 mg tablet (Eliquis) 5 mg PO BID 30 days #60 tabs 10/07/25 guaifenesin 1,200 mg tablet, extended release 12 hr (Mucus Relief ER) 1,200 mg PO BID 7 days #14 tabs 10/07/25 metoprolol tartrate 50 mg tablet 50 mg PO BID 30 days #60 tabs 10/07/25 prednisone 20 mg tablet 40 mg (2 x 20 mg) PO DAILY 5 days #10 tabs 10/07/25 Physical Exam Narrative Shortness of breath is resolved. In sinus rhythm on the campus monitor. No chest pain. Patient stated he walked in the hallway and did not get short of breath. On 3 L of oxygen Physical exam: General: Alert, Oriented x3, Cooperative. 187 pound, BMI 30.2 kg/m² HEENT: Atraumatic, PERRLA, EOMI, Normocephalic. Oral: Oral mucosa dry no Gingival or Mucosal Lesions/ Ulcerations Neck: Supple, No JVD, Negative Carotid Bruits Chest wall/Lungs: Air entry diminished in all lung chavira improved compared to yesterday. Mild bilateral expiratory rhonchi/wheeze Cardiovascular: Converted to sinus rhythm, no M/G/R Abdomen: Bowel Sounds Present, Soft, Non Tender, Non-Distended : No dysuria. No renal angle tenderness. No suprapubic tenderness. Extremities: No edema, Capillary Refill Less than 3 Seconds Skin: No rashes, No breakdown Musculoskeletal: No Tenderness to Palpation of Joints or Extremities Neurological: Cranial nerves II-XII grossly intact, DTR 2+/4. No acute focal neurological deficit. Psych/Mental Status: Flat affect. Weight / BMI Weight Weight: 187 lb 6.287 oz Body Mass Index (BMI) 30.2 ABG / Lab / Microbiology Data 10/07/25 05:48 10/07/25 05:48 Laboratory: Laboratory Results - last 24 hr 10/06/25 12:51: POC Glucose 299 H 10/06/25 17:21: POC Glucose 306 H 10/06/25 22:05: POC Glucose 320 H 10/07/25 05:48: WBC 19.2 H, RBC 5.26, Hgb 14.4, Hct 44.6, MCV 84.8, MCH 27.4, MCHC 32.3, RDW Std Deviation 46.9 H, RDW Coeff of David 15.2 H, Plt Count 243, MPV 11.2, Immature Gran % (Auto) 0.500, Neut % (Auto) 93.3 H, Lymph % (Auto) 3.7 L, Platte % (Auto) 2.3, Eos % (Auto) 0.0, Baso % (Auto) 0.2, Absolute Neuts (auto) 17.9 H, Absolute Lymphs (auto) 0.72 L, Nucleated RBC % 0, Sodium 140, Potassium 4.6, Chloride 106, Carbon Dioxide 24.3, Anion Gap 9, BUN 23 H, Creatinine 0.67 L , Estim Creat Clear Calc 87.84, Est GFR (MDRD) Non-Af 101, BUN/Creatinine Ratio 34.0 H, Glucose 339 H, Calcium 9.3 10/07/25 08:03: POC Glucose 305 H 10/07/25 11:33: POC Glucose 372 H Microbiology: Microbiology 10/05/25 18:55 Nasal Secretion MRSA (PCR) - Final 10/05/25 19:00 Urine, Clean Catch Legionella Antigen - Final 10/05/25 19:00 Urine, Clean Catch Streptococcus pneumoniae Antigen (M - Final 10/05/25 12:00 Mucosa - Nose Respiratory Panel (PCR) - Final 10/05/25 09:50 Mucosa - Nose SARS-CoV-2, Influenza & RSV (PCR) - Final Radiography Diagnostic Testing: Radiology Impression Echocardiogram 10/05/25 14:34 Interpretation Summary The estimated ejection fraction is 70 %. No evidence for diastolic dysfunction. The left atrium is mildly enlarged. Mild aortic stenosis. Ordering Physician: Manas Mccall Referring Physician: Michelet Alcala Performed By: Missael Padron RDCS D/C Instructions Weight Bearing Status: Weight bearing as tolerated Call your doctor if you observe: Fever of 101 or Higher, Coldness, Increased Pain, Numbness or Tingling, Change in Color, Inability to urinate, Inability to have a bowel movement, Shortness of breath, Dizziness, Fainting spells, Swelling in the ankles, Chest pain, Prolonged hiccupping, Increased palpitations (irregular heartbeat) and Calf discomfort DC O2, CPAP, BIPAP Needs Home O2 Discharge instructions: Yes Type of respiratory needs?: Oxygen Oxygen frequency: Continuous Continuous oxygen liters per minute: 3 DC home with Oxygen: Yes Home O2 MD Review: I have reviewed the oxygen testing, and the patient qualifies for home oxygen equipment and portability. The patient is mobile in the home and the community. When: IN 2 WEEKS Meaningful Use Info Meaningful Use Meaningful Use Diagnoses (Choose all that apply): None applicable Discharge Plan Admission Admit Date/Time: 10/05/25 11:43 Attending Provider: Manas Mccall Primary Care Provider: Michelet Alcala Discharge Orders/Prescriptions Prescriptions: New metoprolol tartrate 50 mg Tablet 50 mg PO BID 30 Days Qty: 60 2RF guaifenesin [Mucus Relief ER] 1,200 mg Tablet Extended Release 12hr 1,200 mg PO BID 7 Days Qty: 14 0RF Eliquis 5 mg Tablet 5 mg PO BID 30 Days Qty: 60 2RF amoxicillin-pot clavulanate 875-125 mg tablet 1 tab PO BID 5 Days Qty: 10 0RF prednisone 20 mg tablet 40 mg PO DAILY 5 Days Qty: 10 0RF Continued lisinopril 40 mg tablet 40 mg PO DAILY tiotropium bromide 18 mcg capsule, w/inhalation device 1 cap INHALATION DAILY aspirin 81 MG tablet,chewable 81 mg PO QHS Patient Comments: heart health budesonide-formoterol 1 INHALER inhaler 1 puff inhalation BID Patient Comments: breathing atorvastatin 40 MG tablet 40 mg PO QHS Patient Comments: cholesterol bupropion HCl 150 MG tablet sustained-release 12 hr 150 mg PO BID Patient Comments: depression furosemide 20 mg tablet 20 mg PO DAILY amlodipine [Norvasc] 5 mg tablet 5 mg PO DAILY pregabalin [Lyrica] 100 mg capsule 100 mg PO TID Trulicity 4.5 mg/0.5 mL pen injector 4.5 mg subcut ARAUZ insulin glargine [Basaglar KwikPen U-100 Insulin] 100 unit/mL (3 mL) insulin pen 40 unit subcut DAILY ipratropium-albuterol 0.5 mg-3 mg(2.5 mg base)/3 mL solution for nebulization 3 ml inhalation BID OXYGEN - Supplemental ([facility] INFORMATIONAL USE ONLY) Patient Comments: per CM note: wears 3 lpm at night DME: [facility] CPAP - Continuous Positive Airway Pressure([facility] INFORMATIONAL USE ONLY) Patient Comments: per CM notes: Cpap through [facility], does not know settings to CPAP Held metformin 500 mg tablet extended release 24 hr 1,000 mg PO BID Hold Instructions: Hold for 2 days Discontinued metoprolol tartrate 25 MG tablet 25 mg PO BID Patient Comments: heartrate Referrals / Follow Up: Tiffanie Clements MD [Non-Staff, Medical] Referral Note: Follow-up in 2 weeks to evaluate for bronchoscopy/EBUS for right hilar lymphadenopathy compressing right intermedius bronchus. Michelet Alcala MD [Primary Care Provider, Internal Medicine] - Within 1 Week Roof,Gelacio H PERSONNEL SECURITY ASSISTANT, PERSONNEL SECURITY ASSISTANT-C [Med Staff - Adv Practice Prof, Cardiology] - Within 2 Weeks Referral Note: For new onset A-fib Disposition Disposition (needs filled in before D/C Order can be placed): Home, Self Care Charges/Coding Visit Charges Inpatient E&M: 25907 Disch Hosp >30min
--- NOTE | 2025-10-07 12:25 | CASEMGMT ---
Pt has an order for DC placed. Noted that the pt has a new Rx for Eliquis. RN CM to the pt's room at this time. Pt's family at the bedside. Eliquis savings cared provided to the pt at this time. Informed the pt that this can only be used once. Pt states understanding and thanks this life underwriter. Pt states that he feels safe going home today and denies any further DC needs. PT's RN is aware. Also noted that the pt now requires 2L with exertion. There is a green sheet on the chart for staff to follow. No further needs identified at this time.
== END 2025-10-07 13:30 | disposition home or self-care (01) | DRG 191 ==
LOC: ED 12:03 → PCU 12:42 → ICU 14:17 → PCU 19:14
PROVIDERS: Admitting Provider Internal Medicine; Emergency Provider Surgery; PCP Internal Medicine; Visit Provider Internal Medicine
DX: J44.1 Chronic obstructive pulmonary disease with (acute) exacerbation (principal); J95.4 Chemical pneumonitis due to anesthesia; E11.9 Type 2 diabetes mellitus without complications; I10 Essential (primary) hypertension; J44.0 Chronic obstructive pulmonary disease with (acute) lower respiratory infection; I48.0 Paroxysmal atrial fibrillation; Z79.4 Long term (current) use of insulin; E78.5 Hyperlipidemia, unspecified; I25.10 Atherosclerotic heart disease of native coronary artery without angina pectoris; F17.210 Nicotine dependence, cigarettes, uncomplicated; G47.33 Obstructive sleep apnea (adult) (pediatric); R59.0 Localized enlarged lymph nodes; Z95.5 Presence of coronary angioplasty implant and graft; Z79.82 Long term (current) use of aspirin; Z79.899 Other long term (current) drug therapy; Z79.84 Long term (current) use of oral hypoglycemic drugs
CPT/HCPCS: 36415; 71046; 71275; 80048; 80061; 82803; 82962; 83036; 83735; 83880; 84100; 84439; 84443; 84484; 85025; 85610; 85730; 87449; 87631; 87633; 87641; 93005; 93306; 94640; 94660; 94668; 97161; 97165; 99285; Q9957; Q9967; A4216; C8929; J0295

== ENCOUNTER → 2025-11-07 | Outpatient (CLI) | payer MEDICARE, SELFPAY ==
--- NOTE | 2025-11-07 09:30 | PET_ITS ---
PROCEDURE: PET/CT TUMOR BASE -THIGH INIT 11/07/2025 REASON FOR EXAM: 69 y/o M with ABNORMAL FINDINGS IN LUNG FIELD. Right hilar lymph node enlargement with postobstructive pneumonitis in the right upper lobe. TECHNIQUE: Procedure Code: PETPTCTINIT Modality: PT Procedure: PET/CT TUMOR BASE -THIGH INIT Following the intravenous administration of radionucleotide, image acquisition on a dedicated PET/CT unit was performed at one hour post injection. A preliminary CT study encompassing the Skull base, neck, chest, abdomen, pelvis, and proximal thighs was performed for purposes of attenuation correction and anatomic localization. The proximal thighs were also included. The patient's blood glucose level was 169 mg/dL (allowable range: 50-180 mg/dL). RADIOPHARMACEUTICAL: 13.643 mCi 18F-FDG (Fluorodeoxyglucose F18) IV was injected into he patient. RADIATION DOSE SUMMARY: Effective Dose: Approximately 7 mSv for a standard whole-body PET scan Organ Doses: Varies by organ, with higher doses typically to the bladder, liver, and brain COMPARISON: COMPARISON FROM CT, PET OR OTHER PERTINENT EXAMS: Chest CTA 10/05/2025.. FINDINGS: Physiologic uptake: There may be expected metabolic uptake within the brain, tongue and floor of the mouth and larynx/vocal cords, heart, heather (many normal individuals have hilar uptake in less than 3 nodes with mildly avid hilar nodes less than 2.7 SUV), liver and spleen, system, and GI tract and symmetric muscle uptake. FDG AVID AND NON-AVID LESIONS. Reported avid SUV values (g/mL*) are maximum SUV. NECK: There are no significant neck abnormalities. CHEST: Moderate coronary artery calcification is noted. Chest wall- There are no significant chest wall abnormalities. Axilla- There are no significant axillary abnormalities. Lung parenchyma- Areas airspace disease of the right upper lobe and right lower lobe are again seen, probably somewhat improved at the right lower lobe. No focus of hypermetabolic activity is seen. Mediastinum- Increased uptake is seen of the distal esophagus, with questionable CT correlate. Differential diagnosis includes malignancy and esophagitis. SUV max is 9.8. No significant hypermetabolic activity seen of the right hilum. Pleura- No significant pleural fluid collection is now noted. ABDOMEN: Moderate aortic calcification; no evidence of abdominal aortic aneurysm. Stomach- No significant abnormalities. Liver- No significant abnormalities. Spleen- No significant abnormalities. Pancrease- No significant abnormalities. Kidneys- No significant abnormalities. Bowel- Normal bowel activity. Spine- No significant abnormalities. PELVIS: Prostatomegaly. Moderate sigmoid and descending colon diverticulosis. Bowel- Normal physiologic bowel activity is identified. Masses- There are no pelvic masses. Bones- Degenerative changes of the spine are seen, along with thoracic DISH. With the use of bone window settings, there are no osteolytic or osteoblastic lesions. There are no FDG avid lesions within the visualized portion of the axial skeleton. PET/PET/CT Tumor Base -Thigh Init IMPRESSION: FDG avid- Increased uptake is seen of the distal esophagus, with questionable CT correlat e. Differential diagnosis includes malignancy and esophagitis. Consider direct visualization. Other: 1. Moderate coronary artery calcification. 2. Moderate sigmoid and descending colon diverticulosis. 3. Prostatomegaly. 4. Moderate aortic calcification; no evidence of abdominal aortic aneurysm. 5. Degenerative changes of the spine are seen, along with thoracic DISH. Please note the low-dose CT scan was performed to facilitate PET image reconstr uction and anatomic localization and does not replace a diagnostic CT. Any diagnostic CT requested and performed at the time of the PET will be reported separately. Reading Location: [place] [id number]
== END | disposition home or self-care (01) ==
PROVIDERS: PCP Internal Medicine
DX: R91.8 Other nonspecific abnormal finding of lung field (principal); R93.89 Abnormal findings on diagnostic imaging of other specified body structures; R59.0 Localized enlarged lymph nodes
CPT/HCPCS: 78815; A9552